=== PATIENT | female | born 1970 | race Caucasian/White ===

== ENCOUNTER 2017-09-06 11:30 | Emergency (ER) | payer BC ==
[2017-09-06] MEDS ORDERED: Lidocaine 1% 20 ML MDV INJECT ONE (11:51)
[2017-09-06] MEDS ORDERED: Diphtheria,Pertussis(Acell),Tetanus Vaccine 0.5 ML Syringe IM ONE (11:52)
[2017-09-06] MEDS ORDERED: Bacitracin Oint 1 GM U/D Packet TOP ONE (11:52)
--- NOTE | 2017-09-06 12:01 | EDM.PDOC ---
ED HPI GENERAL MEDICAL PROBLEM - General Chief Complaint: Upper Extremity Injury/Pain Stated Complaint: SLAMMED FINGERS INTO DOOR Time Seen by Provider: 09/06/17 11:42 - History of Present Illness INITIAL COMMENTS - FREE TEXT/NARRATIVE: HISTORY AND PHYSICAL: History of present illness: The patient is a 47-year-old female who presents with complaints of a door which is steel getting blown by wind and closing on her left index finger. Prior to these events this morning she was in her usual state of good health and complains currently only of left index finger pain. She has no proximal hand pain and the remainder of the digits are without pain. She is unsure of her last tetanus shot. She sustained no other injuries other than this finger with these events. Review of systems: As per history of present illness and below otherwise all systems reviewed and negative. Past medical history: As per history of present illness and as reviewed below otherwise noncontributory. Surgical history: As per history of present illness and as reviewed below otherwise noncontributory. Social history: No reported history of drug or alcohol abuse. Family history: As per history of present illness and as reviewed below otherwise noncontributory. Physical exam: General: Well-developed well-nourished thin female who is hyperventilating on my arrival into the ED and prefers to keep eyes shut. Vital signs are noted by me HEENT: Atraumatic, normocephalic, negative for conjunctival pallor or scleral icterus, mucous membranes moist, throat clear, neck supple, nontender, trachea midline. Lungs: Clear to auscultation, breath sounds equal bilaterally, chest nontender. Heart: S1S2, regular rate and rhythm no overt murmurs Abdomen: Soft, nondistended, nontender. NABS Pelvis: Deferred Genitourinary: Deferred. Rectal: Deferred. Extremities: Atraumatic full range of motion of all extremities with the exception of the left index finger where there is soft tissue swelling and pain as well as 2 discrete lacerations. On the dorsal side of the middle phalanx there is a 1 cm superficial appearing laceration and on the palmar surface of the middle phalanx there is any regular J-shaped laceration that measures a total of 2 x 1 cm there is no active bleeding and the larger laceration extends to the subcutaneous tissue and is a flap-like in character the patient is able to range of motion at the digit as well as all the other fingers and there is no proximal hand wrist forearm or elbow pain or injuries. There is no nail or nailbed involvement of this injury The legs are, negative for cords or calf pain. Neurovascular unremarkable. Neuro: Awake, alert, oriented. Cranial nerves II through XII unremarkable. Cerebellum unremarkable. Motor and sensory unremarkable throughout. Exam nonfocal. Diagnostics: X-ray left index finger Therapeutics: Tdap, wound care including irrigation bacitracin and dressing Procedure note: After the wound was irrigated by nursing and a digital block with 1% lidocaine was infused the area was prepped and draped in sterile fashion and the wound was explored. The larger laceration as described above is of simple complexity No foreign bodies were appreciated. After the anesthetic began to work the patient is able to flex without difficulty. A total number of 3 sutures of 4-0 nylon were placed in the dorsal laceration and a total number of 10 sutures of 4-0 nylon were placed on the flap-like laceration on the palmar laceration and all of these sutures were simple interrupted. Patient tolerated the procedure well and there are no complications. Bacitracin and a tube gauze dressing was applied by nursing. Procedure was performed by Lory Tom NP Impression: Crush injury to left index finger with lacerations Definitive disposition and diagnosis as appropriate pending reevaluation and review of above. Left 2-Index finger Pain Score (Numeric/FACES): 8 - Related Data Allergies Allergy/AdvReac Type Severity Reaction Status Date / Time Penicillins Allergy Rash Verified 09/06/17 11:52 Sulfa (Sulfonamide Allergy Change Verified 09/06/17 11:52 Antibiotics) Mental Status Home Meds: Home Meds ALPRAZolam [Alprazolam] 0.5 mg PO ASDIRECTED PRN 09/06/17 [History] Albuterol Sulfate [Proair Hfa] 108 INH ASDIRECTED PRN 09/06/17 [History] Estradiol [Estrace] 2 mg PO DAILY 09/06/17 [History] buPROPion HCl [Wellbutrin Xl] 300 mg PO DAILY 09/06/17 [History] Review of Systems - Review of Systems Review Of Systems: ROS reveals no pertinent complaints other than HPI. ED EXAM, GENERAL - Physical Exam Exam: See Below Course - Vital Signs Last Recorded V/S: Last Vital Signs Temp 36.4 C 09/06/17 11:41 Pulse 68 09/06/17 11:41 Resp 20 09/06/17 11:41 BP 131/65 09/06/17 11:41 Pulse Ox 100 09/06/17 11:41 - Orders/Labs/Meds Orders: Active Orders 24 hr Category Date Time Status Communication Order [RC] STAT Care 09/06/17 11:51 Active Vaccines to be Administered [RC] PER UNIT ROUTINE Care 09/06/17 11:52 Active Fingers Second Digit Lt F1 [CR] Stat Exams 09/06/17 11:53 Taken Meds: Medications Discontinued Medications Generic Name Dose Route Start Last Admin Trade Name Freq PRN Reason Stop Dose Admin Bacitracin 1 dose 09/06/17 11:52 09/06/17 12:09 Bacitracin Oint 1 Gm TOP 09/06/17 11:53 1 dose ONETIME ONE Administration Diphtheria/Tetanus/Acell Pertussis 0.5 ml 09/06/17 11:52 09/06/17 12:09 Adacel IM 09/06/17 11:53 0.5 ml .ONCE ONE Administration Lidocaine HCl 20 ml 09/06/17 11:51 09/06/17 12:09 Xylocaine 1% INJECT 09/06/17 11:52 20 ml ONETIME ONE Administration Departure - Departure Time of Disposition: 12:47 Disposition: Home, Self-Care 01 Condition: Good Clinical Impression: Crush injury to finger Qualifiers: Encounter type: initial encounter Qualified Code(s): S67.10XA - Crushing injury of unspecified finger(s), initial encounter Finger laceration Qualifiers: Encounter type: initial encounter Finger: index finger Damage to nail status: without damage Foreign body presence: without foreign body Laterality: left Qualified Code(s): S61.211A - Laceration without foreign body of left index finger without damage to nail, initial encounter - Discharge Information Referrals: Jami Chase NP [Primary Care Provider] - Forms: ED Department Discharge Additional Instructions: The following information is given to patients seen in the emergency department who are being discharged to home. This information is to outline your options for follow-up care. We provide all patients seen in our emergency department with a follow-up referral. The need for follow-up, as well as the timing and circumstances, are variable depending upon the specifics of your emergency department visit. If you don't have a primary care physician on staff, we will provide you with a referral. We always advise you to contact your personal physician following an emergency department visit to inform them of the circumstance of the visit and for follow-up with them and/or the need for any referrals to a consulting specialist. The emergency department will also refer you to a specialist when appropriate. This referral assures that you have the opportunity for followup care with a specialist. All of these measure are taken in an effort to provide you with optimal care, which includes your followup. Under all circumstances we always encourage you to contact your private physician who remains a resource for coordinating your care. When calling for followup care, please make the office aware that this follow-up is from your recent emergency room visit. If for any reason you are refused follow-up, please contact the [facility] emergency department at and ask to speak to the emergency department charge nurse. [facility] Primary care- Internal Medicine and Family [address] [address] Please keep dressing on that was placed in the ED for the next 24 hours then remove and cleanse with mild soap and water pat dry and apply bacitracin or Neosporin. Please do not use Band-Aids. He can stop the ointment after 3-4 days and the sutures should be removed in 10 days here in the emergency department or with your family doctor. Return to ER sooner as needed and as discussed - My Orders Last 24 Hours: My Active Orders 09/06/17 11:51 Communication Order [RC] STAT 09/06/17 11:52 Vaccines to be Administered [RC] PER UNIT ROUTINE 09/06/17 11:53 Fingers Second Digit Lt F1 [CR] Stat - Assessment/Plan Last 24 Hours: My Active Orders 09/06/17 11:51 Communication Order [RC] STAT 09/06/17 11:52 Vaccines to be Administered [RC] PER UNIT ROUTINE 09/06/17 11:53 Fingers Second Digit Lt F1 [CR] Stat
--- NOTE | 2017-09-07 14:26 | CR ---
EXAM DATE: 09/06/17 PATIENT'S AGE: 47 Patient: DELON MARQUEZ Facility: [place], [place] Site . Site : 1970 Study: XRay Extremity Left 2nd digit [id number]/28/2018 12:15:34 PM Ordering Physician: Maya Levin Final Report: INDICATION: Slammed left index finger in door. TECHNIQUE: Three views of the left index finger. COMPARISON: None. FINDINGS: Laceration and soft tissue swelling. No fracture or dislocation. Mild DIP joint osteoarthritis. Tiny calcific/os ossific density projected medial to the DIP joint, chronic. IMPRESSION: 1. Left index finger soft tissue injury but no acute bony injury. 2. Mild DIP joint osteoarthritis. Dictated by Ambrosio Sheppard MD @ Sep 06 2017 12:29PM (Electronic Signature) Report Signed by Proxy. [facility]
== END 2017-09-06 13:01 | disposition home or self-care (01) ==
LOC: MW.ED 11:30
DX: S67.191A Crushing injury of left index finger, initial encounter (principal); S61.211A Laceration without foreign body of left index finger without damage to nail, initial encounter; Z88.0 Allergy status to penicillin; Z88.2 Allergy status to sulfonamides; Z23 Encounter for immunization; Z79.899 Other long term (current) drug therapy; W23.1XXA Caught, crushed, jammed, or pinched between stationary objects, initial encounter
CPT/HCPCS: 12001; 73140-26-F1; 73140-F1; 90471; 90715; 99283; 99283-25

== ENCOUNTER 2017-09-17 15:04 | Emergency (ER) | payer BC | END 2017-09-17 16:32 | disposition home or self-care (01) | LOC: MW.ED 15:04 | DX: Z53.21 Procedure and treatment not carried out due to patient leaving prior to being seen by health care provider (principal) ==

== ENCOUNTER 2021-06-08 13:36 | Emergency (ER) | payer BC | END 2021-06-08 14:38 | disposition home or self-care (01) | LOC: MW.ED 13:36 | DX: Z53.21 Procedure and treatment not carried out due to patient leaving prior to being seen by health care provider (principal) ==